=== PATIENT | male | born 1965 | race Hispanic/Latino ===

== ENCOUNTER 2020-01-08 04:18 | Emergency (ER) | payer MEDICAID ==
[2020-01-08] MEDS ORDERED: ONDANSETRON HCL 4 MG/2 ML VIAL ONE ×3 (04:57→06:37)
[2020-01-08] MEDS ORDERED: MORPHINE SULFATE 4 MG/1ML SYG ONE (04:57)
[2020-01-08 05:07] LABS: BASOPHILS % (AUTO) 0.4 % (0.0-5.0); EOSINOPHILS % (AUTO) 1.6 % (0.0-8.0); HEMATOCRIT 43.1 % (42-54); LYMPHOCYTES % (AUTO) 26.4 % (21.0-51.0); MEAN CORPUSCULAR HEMOGLOBIN 28.7 pg (27.0-33.0); MEAN CORPUSCULAR HGB CONC 33.2 g/dL (32.0-36.0); MEAN CORPUSCULAR VOLUME 86.4 fL (79-99); NEUTROPHILS % (AUTO) 66.1 % (40.0-77.0); PLATELET COUNT (AUTO) 238 K/uL (130-400); RED BLOOD CELL COUNT(AUTO) 4.99 MIL/uL (4.50-6.20); RED CELL DISTRIBUTION WIDTH 12.4 % (11.0-15.5)
[2020-01-08 05:09] LABS: APPEARANCE,URINE Turbid (CLEAR); BILIRUBIN,URINE Negative (NEGATIVE); COLOR,URINE Orange (YELLOW); GLUCOSE, URINE (UA) Negative (NEGATIVE); KETONES,URINE Negative (NEGATIVE); LEUKOCYTE ESTERASE ,URINE Trace (NEGATIVE); NITRATE,URINE Negative (NEGATIVE); OCCULT BLOOD,URINE Large (NEGATIVE); PROTEIN,URINE POS 1+ mg/dL (NEGATIVE)
[2020-01-08 05:18] LABS: AMORPHOUS SEDIMENT,UR Moderate /LPF (None Seen); BACTERIA,URINE Rare /HPF (None Seen); MUCUS,URINE Rare LPF (None Seen); SQUAMOUS EPITHELIAL CELL,UR Few /HPF (0-2); WBC,URINE 0-1 /HPF (0-1)
[2020-01-08 05:43] LABS: ALBUMIN 3.5 g/dL (3.5-5.0); BILIRUBIN,DIRECT 0.1 mg/dL (0.0-0.3); BILIRUBIN,TOTAL 0.4 mg/dL (0.2-1.0); CREATININE 1.4 mg/dL (0.5-1.5); POTASSIUM 4.9 mmol/L (3.5-5.1); TOTAL PROTEIN, SERUM 7.5 g/dL (6.0-8.3)
[2020-01-08] MEDS ORDERED: KETOROLAC TROMETHAMINE 30MG/ML ONE (06:37)
[2020-01-08] MEDS ORDERED: IPRATROPIUM/ALBUTEROL SULFATE 3 ML SOLUTION IH ONE (07:06)
== END 2020-01-08 10:38 | disposition home or self-care (01) ==
LOC: EDH 04:18
DX: N20.2 Calculus of kidney with calculus of ureter (principal); I10 Essential (primary) hypertension; R11.2 Nausea with vomiting, unspecified
CPT/HCPCS: 36415; 74176; 76770; 80048; 80076; 81001; 85025; 94640; 96374; 96375; 96376; 99285; J1885; J2270; J2405 ×3

== ENCOUNTER 2020-01-12 12:41 | Emergency (ER) | payer MEDICAID ==
[2020-01-12] MEDS ORDERED: SODIUM CHLORIDE 0.9% 1000ML 1,000 ML IV ONE (12:42)
[2020-01-12 13:13] LABS: APPEARANCE,URINE Cloudy (CLEAR); BILIRUBIN,URINE Negative (NEGATIVE); COLOR,URINE Yellow (YELLOW); GLUCOSE, URINE (UA) Negative (NEGATIVE); KETONES,URINE Negative (NEGATIVE); LEUKOCYTE ESTERASE ,URINE Negative (NEGATIVE); NITRATE,URINE Negative (NEGATIVE); OCCULT BLOOD,URINE Large (NEGATIVE); PROTEIN,URINE Trace mg/dL (NEGATIVE); UROBILINOGEN,URINE 0.2 mg/dL (0.2-1.0)
[2020-01-12 13:15] LABS: BASOPHILS % (AUTO) 0.2 % (0.0-5.0); EOSINOPHILS % (AUTO) 2.4 % (0.0-8.0); HEMATOCRIT 41.5 % (42-54); LYMPHOCYTES % (AUTO) 22.2 % (21.0-51.0); MEAN CORPUSCULAR HEMOGLOBIN 28.8 pg (27.0-33.0); MEAN CORPUSCULAR HGB CONC 33.3 g/dL (32.0-36.0); MEAN CORPUSCULAR VOLUME 86.5 fL (79-99); MONOCYTES % (AUTO) 7.4 % (3.0-13.0); NEUTROPHILS % (AUTO) 67.7 % (40.0-77.0); PLATELET COUNT (AUTO) 234 K/uL (130-400); RED CELL DISTRIBUTION WIDTH 12.2 % (11.0-15.5); WHITE BLOOD COUNT (AUTO) 8.1 K/uL (4.8-10.8)
[2020-01-12 13:20] LABS: CREATININE 1.6 mg/dL (0.5-1.5); POTASSIUM 3.7 mmol/L (3.5-5.1)
[2020-01-12 13:24] LABS: ALBUMIN 3.8 g/dL (3.5-5.0); BILIRUBIN,TOTAL 0.4 mg/dL (0.2-1.0); TOTAL PROTEIN, SERUM 7.9 g/dL (6.0-8.3)
[2020-01-12 13:25] LABS: BACTERIA,URINE Rare /HPF (None Seen); RBC,URINE 26-50 /HPF (0-1); WBC,URINE 0-1 /HPF (0-1)
[2020-01-12 13:26] LABS: MUCUS,URINE Few LPF (None Seen); SQUAMOUS EPITHELIAL CELL,UR Rare /HPF (0-2)
[2020-01-12] MEDS ORDERED: KETOROLAC TROMETHAMINE 30MG/ML ONE (13:43)
== END 2020-01-12 15:04 | disposition home or self-care (01) ==
LOC: EDH 12:41
DX: N13.2 Hydronephrosis with renal and ureteral calculous obstruction (principal); I10 Essential (primary) hypertension
CPT/HCPCS: 36415; 74176; 80053; 81001; 82150; 83690; 85025; 93005; 96361; 96374; 99285; J1885; J7030

== ENCOUNTER 2020-03-27 18:23 | Emergency (ER) | payer MEDICAID ==
[2020-03-27] MEDS ORDERED: TAMSULOSIN HCL 0.4 MG CAP.ER.24H ONE (18:54)
[2020-03-27] MEDS ORDERED: KETOROLAC TROMETHAMINE 30MG/ML ONE (18:55)
[2020-03-27] MEDS ORDERED: SODIUM CHLORIDE 0.9% 1000ML 1,000 ML IV ONE (18:57)
[2020-03-27] MEDS ORDERED: METOCLOPRAMIDE 10 MG/2 ML VIAL ONE (19:32)
[2020-03-27] MEDS ORDERED: ONDANSETRON HCL 4 MG/2 ML VIAL ONE (19:32)
[2020-03-27 20:00] LABS: BASOPHILS % (AUTO) 0.3 % (0.0-5.0); EOSINOPHILS % (AUTO) 2.1 % (0.0-8.0); HEMATOCRIT 42.6 % (42-54); LYMPHOCYTES % (AUTO) 25.2 % (21.0-51.0); MEAN CORPUSCULAR HEMOGLOBIN 28.6 pg (27.0-33.0); MEAN CORPUSCULAR HGB CONC 33.1 g/dL (32.0-36.0); MEAN CORPUSCULAR VOLUME 86.4 fL (79-99); MONOCYTES % (AUTO) 8.5 % (3.0-13.0); NEUTROPHILS % (AUTO) 63.7 % (40.0-77.0); PLATELET COUNT (AUTO) 260 K/uL (130-400); RED BLOOD CELL COUNT(AUTO) 4.93 MIL/uL (4.50-6.20); RED CELL DISTRIBUTION WIDTH 12.7 % (11.0-15.5); WHITE BLOOD COUNT (AUTO) 10.7 K/uL (4.8-10.8)
[2020-03-27 20:11] LABS: CREATININE 1.8 mg/dL (0.5-1.5); POTASSIUM 4.1 mmol/L (3.5-5.1)
[2020-03-27 20:14] LABS: APPEARANCE,URINE Clear (CLEAR); BILIRUBIN,URINE Negative (NEGATIVE); COLOR,URINE Yellow (YELLOW); GLUCOSE, URINE (UA) Negative (NEGATIVE); KETONES,URINE Negative (NEGATIVE); LEUKOCYTE ESTERASE ,URINE Negative (NEGATIVE); NITRATE,URINE Negative (NEGATIVE); OCCULT BLOOD,URINE Moderate (NEGATIVE); PROTEIN,URINE Negative (NEGATIVE)
[2020-03-27 20:15] LABS: ALBUMIN 3.9 g/dL (3.5-5.0); BILIRUBIN,TOTAL 0.4 mg/dL (0.2-1.0); TOTAL PROTEIN, SERUM 8.3 g/dL (6.0-8.3)
[2020-03-27 20:34] LABS: BACTERIA,URINE Rare /HPF (None Seen); MUCUS,URINE Few LPF (None Seen); SQUAMOUS EPITHELIAL CELL,UR Few /HPF (0-2); WBC,URINE 0-1 /HPF (0-1)
== END 2020-03-27 21:00 | disposition home or self-care (01) ==
LOC: EDH 18:23
DX: N20.1 Calculus of ureter (principal); I10 Essential (primary) hypertension; J45.909 Unspecified asthma, uncomplicated
CPT/HCPCS: 36415; 74176; 80053; 81001; 82550; 83690; 84484; 85025; 93005; 96361; 96374; 96375; 99285; J1885; J2405; J2765; J7030

== ENCOUNTER 2020-06-23 11:22 | Emergency (ER) | payer MEDICAID | END 2020-06-23 12:16 | disposition home or self-care (01) | LOC: EDH 11:22 | DX: H93.8X1 Other specified disorders of right ear (principal); J45.909 Unspecified asthma, uncomplicated; I10 Essential (primary) hypertension | CPT/HCPCS: 99282 ==

== ENCOUNTER 2021-07-27 23:02 | Emergency (ER) | payer MEDICAID ==
[~2021-07-27] VITALS: Ht 162.6 cm; Wt 77.1 kg
[~2021-07-27 23:02] MED LIST: DICY20TA2 PO; KETO10 PO; MELO7.5T12 PO; METO-296 PO; ONDA4TAB10 PO; TAMS-1 PO
[2021-07-27 23:28] LABS: BASOPHILS % (AUTO) 0.2 % (0.0-5.0); EOSINOPHILS % (AUTO) 1.3 % (0.0-8.0); LYMPHOCYTES % (AUTO) 10.8 % (21.0-51.0); MEAN CORPUSCULAR HEMOGLOBIN 27.8 pg (27.0-33.0); MEAN CORPUSCULAR HGB CONC 32.6 g/dL (32.0-36.0); MEAN CORPUSCULAR VOLUME 85.4 fL (79-99); MONOCYTES % (AUTO) 5.4 % (3.0-13.0); PLATELET COUNT (AUTO) 229 K/uL (130-400); RED BLOOD CELL COUNT(AUTO) 4.92 MIL/uL (4.50-6.20); RED CELL DISTRIBUTION WIDTH 12.7 % (11.0-15.5); WHITE BLOOD COUNT (AUTO) 10.7 K/uL (4.8-10.8)
[2021-07-27] MEDS ORDERED: ONDANSETRON ODT 4MG TAB SL ONE (23:30)
[2021-07-27] MEDS ORDERED: ACETAMINOPHEN 500 MG TABLET PO ONE (23:30)
[2021-07-27 23:36] LABS: APPEARANCE,URINE CLEAR (CLEAR); BILIRUBIN,URINE NEGATIVE (NEGATIVE); COLOR,URINE YELLOW (YELLOW); GLUCOSE, URINE (UA) NEGATIVE (NEGATIVE); KETONES,URINE NEGATIVE (NEGATIVE); LEUKOCYTE ESTERASE ,URINE NEGATIVE (NEGATIVE); NITRATE,URINE NEGATIVE (NEGATIVE); OCCULT BLOOD,URINE NEGATIVE (NEGATIVE); PROTEIN,URINE NEGATIVE (NEGATIVE)
[2021-07-27 23:43] LABS: CREATININE 1.4 mg/dL (0.5-1.5); POTASSIUM 3.8 mmol/L (3.5-5.1)
[2021-07-27 23:47] LABS: ALBUMIN 3.9 g/dL (3.5-5.0); BILIRUBIN,TOTAL 0.4 mg/dL (0.2-1.0); TOTAL PROTEIN, SERUM 7.9 g/dL (6.0-8.3)
[2021-07-28] MEDS ORDERED: 0.9%NACL 1000ML 1,000 ML IV SCH (00:30)
[2021-07-28 01:42] VITALS: BP 113/71
== END 2021-07-28 02:48 | disposition home or self-care (01) ==
LOC: EDH 23:02
DX: U07.1 COVID-19 (principal); R50.9 Fever, unspecified; E78.00 Pure hypercholesterolemia, unspecified; I10 Essential (primary) hypertension; J45.909 Unspecified asthma, uncomplicated; Z79.1 Long term (current) use of non-steroidal anti-inflammatories (NSAID); Z87.442 Personal history of urinary calculi
CPT/HCPCS: 36415; 70450; 80053; 81003; 83690; 85025; 87635; 87804 ×2; 87880; 99284; C9803